=== PATIENT | female | born 1950 | race African-American/Black ===

== ENCOUNTER 2016-10-04 15:05 | Emergency (ER) | payer MEDICAID, MEDICARE ==
[~2016-10-04] VITALS: Ht 165.1 cm; Wt 80.7 kg
[2016-10-04 16:17] LABS: APPEARANCE,URINE CLEAR; KETONES,URINE NEGATIVE (NEGATIVE); LEUKOCYTE ESTERASE ,URINE 1+ (NEGATIVE); NITRITE,URINE POSITIVE (NEGATIVE); PH,URINE 6 (4.5-8.0); PROTEIN,URINE NEGATIVE (NEGATIVE); UROBILINOGEN,URINE NORMAL MG/DL (0.0-1.0)
[2016-10-04 16:40] LABS: BACTERIA,URINE MANY /HPF; SQUAMOUS EPITHELIAL CELL,UR MODERATE /LPF (NONE/OCC)
--- NOTE | 2016-10-04 17:04 | Emergency Room Report ---
History of Present Illness General Chief Complaint: Female Urogenital Problems Source: Patient Present Illness HPI 66 YO female presents to the ED c/o Vaginal d/c x 3 weeks. in addition to dysuria. She states that she reported her symptoms to PCP who did not physically evaluate her and he only prescribed Diflucan which did not provide relief of her symptoms. Patient states she has a history of bacterial vaginosis in the past. Pt also reports nasal congestion x 2 days, and increased sinus pressure. Denies unprotected intercourse. or STI exposure. She denies urgency, frequency, hematuria, malodor, itching, rashes, or low back pain. She denies nausea vomiting fevers or chills. Denies CP, Palpitations, LOC, AMS, dizziness, Changes in Vision, Sensation, paresthesias, or a sudden severe headache. Allergies: Coded Allergies: ASPIRIN (Verified Allergy, Unknown, 10/04/16) IBUPROFEN (Verified Allergy, Unknown, 10/04/16) Patient History Past Medical History: see triage record Past Surgical History: none Pertinent Family History: none Last Menstrual Period: na Now: No Immunizations: UTD Reviewed Nursing Documentation: PMH: Agreed, PSxH: Agreed Nursing Documentation-PMH Past Medical History: No History, Except For Hx Diabetes: Yes Review of Systems All Other Systems: negative except mentioned in HPI Physical Exam Vital Signs Date Time Temp Pulse Resp B/P Pulse Ox O2 Delivery O2 Flow Rate FiO2 10/04/16 15:21 98.1 64 18 134/82 97 Room Air Sp02 EP Interpretation: reviewed, normal General Appearance: no apparent distress, alert, GCS 15, non-toxic Head: normocephalic, atraumatic Eyes: bilateral eye PERRL, bilateral eye normal inspection ENT: hearing grossly normal, normal pharynx, no angioedema, normal voice Neck: full range of motion, supple/symm/no masses Respiratory: chest non-tender, lungs clear, normal breath sounds, speaking full sentences Cardiovascular #1: regular rate, rhythm, no edema Gastrointestinal: normal bowel sounds, non tender, soft, no guarding, no rebound Rectal: deferred Genitourinary: normal inspection, no CVA tenderness, adnexa normal, bladder normal, cervix normal, other - milky white vaginal d/c noted in the vaginal vault, no CMT. Musculoskeletal: back normal, gait/station normal, normal range of motion, non- tender, no calf tenderness Neurologic: alert, oriented x3, responsive, motor strength/tone normal, sensory intact, speech normal Psychiatric: judgement/insight normal, memory normal, mood/affect normal, no suicidal/homicidal ideation Skin: normal color, no rash, warm/dry, well hydrated Lymphatic: no adenopathy Medical Decision Making PA Attestation Dr. Abebe is my supervising Physician whom patient management has been discussed with. Diagnostic Impression: Primary Impression: UTI (urinary tract infection) Qualified Codes: N30.00 - Acute cystitis without hematuria Additional Impression: Bacterial vaginosis ER Course Pt. presents to the ED c/oVaginal d/c x 3 weeks. in addition to dysuria. -Pt also reports nasal congestion x 2 days, and increased sinus pressure. denies unprotected intercourse. or STI exposure. Ddx considered but are not limited to UTi , STI, G & C, trichomonas, Vaginitis , cervicitis. Vital signs: are WNL, pt. is afebrile H&PE are most consistent with vaginitis ORDERS: - UA: Nitrite positive, wbc's and bacteria noted indicating UTI. -Wet [place]: positive for bacteria and clue cells. ED INTERVENTIONS: -none required at this time. Pt requests diflucan as oral abx usually causes her to get a yeast infection. DISCHARGE: At this time pt. is stable for d/c to home. Will provide printed patient care instructions, and any necessary prescriptions. Care plan and follow up instructions have been discussed with the patient prior to discharge. Labs Test 10/04/16 15:30 Urine Color Pale yellow Urine Appearance Clear Urine pH 6 (4.5-8.0) Urine Specific [place] 1.010 (1.005-1.035) Urine Protein Negative (NEGATIVE) Urine Glucose (UA) 3+ (NEGATIVE) Urine Ketones Negative (NEGATIVE) Urine Occult Blood Negative (NEGATIVE) Urine Nitrite Positive (NEGATIVE) Urine Bilirubin Negative (NEGATIVE) Urine Urobilinogen Normal MG/DL (0.0-1.0) Urine Leukocyte Esterase 1+ (NEGATIVE) Urine RBC 2-4 /HPF (0 - 2) Urine WBC 5-10 /HPF (0 - 2) Urine Squamous Epithelial Cells Moderate /LPF (NONE/OCC) Urine Bacteria Many /HPF (NONE) Last Vital Signs Date Time Temp Pulse Resp B/P Pulse Ox O2 Delivery O2 Flow Rate FiO2 10/04/16 15:21 98.1 64 18 134/82 97 Room Air Disposition: HOME, SELF-CARE Condition: Stable Scripts Pseudoephedrine Hcl* (NEXAFED*) 30 Mg Tablet 30 MG ORAL Q6H Y for congestion for 4 Days, #20 TAB Prov: Citlali Recinos.A. 10/04/16 Fluconazole (FLUCONAZOLE) 100 Mg Tablet 100 MG ORAL DAILY, #2 TAB 0 Refills Prov: Citlali RecinosADeb 10/04/16 Phenazopyridine Hcl* (PYRIDIUM*) 100 Mg Tablet 100 MG ORAL THREE TIMES A DAY for 3 Days, #12 TAB Prov: Citlali RecinosADeb 10/04/16 Nitrofurantoin Monohyd/M-Cryst* (MACROBID 100 MG*) 100 Mg Capsule 100 MG ORAL EVERY 12 HOURS for 7 Days, #14 CAP Prov: Citlali Recinos.A. 10/04/16 Metronidazole* (FLAGYL*) 500 Mg Tablet 500 MG ORAL BID for 7 Days, #14 TAB 0 Refills Prov: Citlali Recinos.A. 10/04/16 Patient Instructions: Bacterial Vaginosis, Urinary Tract Infection Additional Instructions: Take medications as directed. Follow up with PCP in 3-5 days Return sooner to ED if new symptoms occur, or current symptoms become worse. Do not drink alcohol while taking Flagyl/metronidazole as this will cause an unwanted reaction. Citlali Recinos Oct 04, 2016 17:04
[2016-10-04] MEDS ORDERED: NITROFURANTOIN100 M2 ORAL (17:05)
[2016-10-04] MEDS ORDERED: PHENAZOPYRIDIN100 MG ORAL (17:05)
[2016-10-04] MEDS ORDERED: METRONIDAZOLE500 MG ORAL (17:05)
[2016-10-04] MEDS ORDERED: NEXAFED30 MG ORAL (17:39)
[2016-10-04] MEDS ORDERED: FLUCONAZOLE100 MG ORAL (17:39)
[2016-10-04 17:59] VITALS: BP_SYST 109; BP_SYST 118; BP_DIAS 68; BP_DIAS 71
== END 2016-10-04 18:04 | disposition home or self-care (01) ==
LOC: EMR 15:40
DX: N30.00 Acute cystitis without hematuria (principal); N76.0 Acute vaginitis; R09.81 Nasal congestion; Z88.6 Allergy status to analgesic agent; E11.9 Type 2 diabetes mellitus without complications
CPT/HCPCS: 81003; 87086; 87181; 87210; 99284

== ENCOUNTER 2016-12-07 11:42 | Emergency (ER) | payer MEDICARE ==
[~2016-12-07] VITALS: Ht 165.1 cm; Wt 81.6 kg
[~2016-12-07 11:42] MED LIST: FLUCONAZOLE100 MG ORAL; METRONIDAZOLE500 MG ORAL; NEXAFED30 MG ORAL; NITROFURANTOIN100 M2 ORAL; PHENAZOPYRIDIN100 MG ORAL
[2016-12-07] MEDS ORDERED: SYNTHROID25 MCG ORAL (12:06)
[2016-12-07] MEDS ORDERED: PRAVACHOL40 MG ORAL (12:06)
[2016-12-07] MEDS ORDERED: COZAAR50 MG ORAL (12:06)
--- NOTE | 2016-12-07 12:15 | Emergency Room Report ---
History of Present Illness General Chief Complaint: Female Urogenital Problems Source: Patient, Medical Record Present Illness HPI 66 y/o female c/o dysuria and possible yeast infection for 5 days. Assoc sxs include frequency, urgency, and burning urinary pain. Additionally, patient complains of white cottage cheese discharge that presented over past 2-3 days assoc with vaginal itching. States there are no provoking or relieving factors andhas hx of vag discharge and UTI that was treated in Sep 2016. Denies any flank pain, n/v, abd pain, fever or swelling. Allergies: Coded Allergies: ASPIRIN (Verified Allergy, Unknown, 10/04/16) IBUPROFEN (Verified Allergy, Unknown, 10/04/16) Patient History Past Medical History: see triage record Pertinent Family History: none Now: No Immunizations: UTD Reviewed Nursing Documentation: PMH: Agreed, PSxH: Agreed Nursing Documentation-PMH Hx Diabetes: Yes Review of Systems All Other Systems: negative except mentioned in HPI Physical Exam Vital Signs Date Time Temp Pulse Resp B/P Pulse Ox O2 Delivery O2 Flow Rate FiO2 12/07/16 11:58 98.2 60 16 114/63 100 Room Air Sp02 EP Interpretation: reviewed, normal General Appearance: no apparent distress, alert, GCS 15, non-toxic Head: normocephalic, atraumatic Respiratory: chest non-tender, lungs clear, normal breath sounds, speaking full sentences Cardiovascular #1: regular rate, rhythm, no edema Gastrointestinal: non tender, soft, non-distended, no guarding Genitourinary: no CVA tenderness Musculoskeletal: back normal, gait/station normal, normal range of motion Skin: normal color, no rash, warm/dry, well hydrated Lymphatic: no adenopathy Medical Decision Making PA Attestation Dr. Hernandez is my supervising physician with whom patient management has been discussed with. Diagnostic Impression: Primary Impression: Acute cystitis Qualified Codes: N30.00 - Acute cystitis without hematuria Additional Impression: Vaginal candidiasis ER Course Pt. presents to the ED c/o dysuria Ddx considered but are not limited to pyelonephritis, kidney stone, UTI, dysuria , diabetes, vaginitis Vital signs: are WNL, pt. is afebrile H&PE are most consistent with vaginitis with UTI ORDERS: UA ED INTERVENTIONS: none required at this time. DISCHARGE: At this time pt. is stable for d/c to home. Will provide printed patient care instructions, and any necessary prescriptions. Care plan and follow up instructions have been discussed with the patient prior to discharge. Laboratory Tests Test 12/07/16 12:24 Urine Color Pale yellow Urine Appearance Clear Urine pH 6 (4.5-8.0) Urine Specific [place] 1.010 (1.005-1.035) Urine Protein Negative (NEGATIVE) Urine Glucose (UA) 3+ (NEGATIVE) H Urine Ketones Negative (NEGATIVE) Urine Occult Blood Negative (NEGATIVE) Urine Nitrite Negative (NEGATIVE) Urine Bilirubin Negative (NEGATIVE) Urine Urobilinogen Normal MG/DL (0.0-1.0) Urine Leukocyte Esterase 1+ (NEGATIVE) H Urine RBC 0-2 /HPF (0 - 2) Urine WBC 5-10 /HPF (0 - 2) H Urine Squamous Epithelial Cells Few /LPF (NONE/OCC) Urine Bacteria Moderate /HPF (NONE) H Last Vital Signs Date Time Temp Pulse Resp B/P Pulse Ox O2 Delivery O2 Flow Rate FiO2 12/07/16 11:58 98.2 60 16 114/63 100 Room Air Disposition: HOME, SELF-CARE Condition: Stable Scripts Fluconazole (FLUCONAZOLE) 100 Mg Tablet 150 MG ORAL DAILY, #2 TAB 0 Refills Prov: BARRINGTON COLE 12/07/16 Cephalexin* (KEFLEX*) 500 Mg Capsule 500 MG ORAL EVERY 12 HOURS, #14 CAP 0 Refills Prov: [email or web address] 12/07/16 Patient Instructions: Vaginal Yeast Infection, Adult, Urinary Tract Infection Additional Instructions: Take medication as directed. Patient informed that Azo (Pyridium) will make your urine turn orange and to use for urinary pain. Drink plenty of cranberry juice and have some pelvic rest. Return to clinic or PCP sooner if symptoms worsen or do not improve. Go to ER if you experience any adverse reactions to medication or if you start developing back pain or fever. BARRINGTON COLE Dec 07, 2016 12:15
[2016-12-07 12:39] LABS: APPEARANCE,URINE CLEAR; KETONES,URINE NEGATIVE (NEGATIVE); LEUKOCYTE ESTERASE ,URINE 1+ (NEGATIVE); NITRITE,URINE NEGATIVE (NEGATIVE); PH,URINE 6 (4.5-8.0); PROTEIN,URINE NEGATIVE (NEGATIVE); UROBILINOGEN,URINE NORMAL MG/DL (0.0-1.0)
[2016-12-07] MEDS ORDERED: CEPHALEXIN500 MG ORAL (12:42)
[2016-12-07] MEDS ORDERED: FLUCONAZOLE100 MG ORAL (12:42)
[2016-12-07 12:47] LABS: RBC,URINE 0-2 /HPF (0 - 2)
[2016-12-07 12:48] LABS: BACTERIA,URINE MODERATE /HPF; SQUAMOUS EPITHELIAL CELL,UR FEW /LPF (NONE/OCC)
[2016-12-07 12:50] VITALS: BP 114/63
== END 2016-12-07 13:00 | disposition home or self-care (01) ==
LOC: EMR 12:52
DX: N30.00 Acute cystitis without hematuria (principal); B37.3 Candidiasis of vulva and vagina; E11.9 Type 2 diabetes mellitus without complications; Z88.6 Allergy status to analgesic agent
CPT/HCPCS: 81003; 87086; 87181; 99284